=== PATIENT | female | born 1945 | race Caucasian/White ===

== ENCOUNTER 2016-05-05 18:39 | Inpatient (IN) | payer BC ==
--- NOTE | ~2016-05-05 | CN ---
Consultation Report [facility] [address] [place]. [address] NAME: ROXANNA BOUCHER : 45 STATUS : ADM IN PAT#: [id number] AGE: 70 ADM/REG DATE : 05/05/16 MR#: [id number] REPORT SERV DATE: 05/06/16 DICTATED BY: ROBE MONTEZ DATE: 05/06/16 REPORT STATUS : Draft TRANSCRIBED BY: MODL DATE: 05/06/16 CONSULTATION DATE OF CONSULTATION: 05/06/2016 CHIEF COMPLAINT: Shortness of breath in a patient with a moderate to large right-sided pleural effusion. HISTORY OF PRESENT ILLNESS: Mrs. Roxanna Boucher is a very pleasant 70-year-old white female with a past medical history significant for recent right-sided chest trauma event, breast cancer, and diabetes mellitus, who presents to [facility]'s emergency room with complaints of worsening shortness of breath. It should be noted that Mrs. Boucher did suffer a traumatic fall with resultant fractures to her right ribs and was seen at [place] as recently as mid March. The patient is not currently followed by a wardrobe technician. She does not usually require supplemental oxygen. She takes no nebulized medications. The patient states that she smoked very infrequently for less than a year when she was a teenager. She does confirm daytime somnolence and snoring consistent with obstructive sleep apnea. She describes her exercise tolerance as being quite good prior to this recent illness, being able to walk over a city block without experiencing any shortness of breath. The patient states that in early March, she took a fall off her porch striking her left shoulder and right thorax. She did have rib fractures on the right and was treated at [place] for these concerns. She eventually improved and transitioned to a rehab facility where she largely did well. She then transitioned to home. Over the last week or so, she has developed some worsening shortness of breath to such a degree that she presented to [facility]'s emergency room. Upon arrival, she was found to be normotensive and afebrile. She had good oxygenation on room air. Initial blood work revealed a white blood cell count of 8000. Hemoglobin and hematocrit were 13.4 and 42.5 respectively. Her BNP was 29.9. She did eventually undergo a CTA of the chest which revealed changes consistent with some mild pulmonary edema as well as a moderate to large right-sided pleural effusion. For the aforementioned reasons, she has been referred to the Pulmonary Service for further assessment. Currently, Mrs. oBucher' main complaint is shortness of breath. This is worse on exertion and relieved by rest. She does not have any cough today nor is producing any purulent sputum. She denies any wheezing in her chest. She denies any previous pneumonias. She denies a diagnosis of childhood asthma. She denies any chronic bronchitis or emphysema. The patient does have known hypertension. She currently denies any murmurs, angina, or palpitations. She denies any paroxysmal nocturnal dyspnea or edema. Consultation Report [place] [id number] [facility] [place]. [address] NAME: ROXANNA BOUCHER : 45 STATUS : ADM IN [facility]#: [id number] AGE: 70 ADM/REG DATE : 05/05/16 MR#: [id number] REPORT SERV DATE: 05/06/16 DICTATED BY: ROBE MONTEZ DATE: 05/06/16 REPORT STATUS : Draft TRANSCRIBED BY: NAVEEN DATE: 05/06/16 In regard to constitutional symptoms, she currently denies fever, chills, nausea, vomiting, chest pain, abdominal pain, or edema. PAST MEDICAL HISTORY: 1. Type 2 diabetes. 2. Breast cancer, status post left mastectomy. 3. Hypertension. 4. Recent rib fractures. PAST SURGICAL HISTORY: Mastectomy. FAMILY HISTORY: The patient states that her father of lung cancer. SOCIAL HISTORY: The patient has one child who is in good health. She has worked primarily in an office environment, and denies any known exposures to dust, silica, or asbestos. TOBACCO/ALCOHOL: As previously mentioned, the patient smoked infrequently for less than a year when she was a teenager. She denies any recent alcohol or illicit drug use. MEDICATIONS: 1. Aspirin 81 mg. 2. Insulin. 3. Levothyroxine 50 mcg. 4. Losartan 25 mg. 5. Pravastatin 20 mg. 6. Zoloft 100 mg. 7. Januvia 50 mg. ALLERGIES: THE PATIENT HAS AN ALLERGY TO ADHESIVE TAPE. REVIEW OF SYSTEMS: A complete review of systems was performed with pertinent positives and negatives contained within the body of the HPI. PHYSICAL EXAMINATION: VITAL SIGNS: Blood pressure is 185/77, heart rate is 73, T-max is 97.5, respiratory rate is 18, and SpO2 is 94% on room air. GENERAL: The patient is a pleasant, well-nourished/well-developed female, who is not currently exhibiting any signs of acute distress. Skin: Skin with appropriate texture and turgor. No rashes, lesions, or ulcers. Nails are clear without cyanosis or clubbing. HEENT: Head: Skull is normocephalic/atraumatic. Facies symmetric. No masses or lesions. Eyes: Sclera anicteric, conjunctiva pink without exudates. Extra ocular movements intact. Pupils are equal, round, reactive to light. Ears: Auricles and tragus without pain to palpation. Hearing is grossly intact. Consultation Report [address] [place]. [address] NAME: ROXANNA BOUCHER : 45 STATUS : ADM IN [facility]#: [id number] AGE: 70 ADM/REG DATE : 05/05/16 MR#: [id number] REPORT SERV DATE: 05/06/16 DICTATED BY: ROBE MONTEZ DATE: 05/06/16 REPORT STATUS : Draft TRANSCRIBED BY: NAVEEN DATE: 05/06/16 Nose: Bilateral nasal patency. Sinuses without tenderness upon palpation. Throat: The patient has good dentition and good repair. Lips, oral mucosa, tongue, palate, and pharynx pink and moist without lesions. Uvula rises equally on phonation. Tongue midline without deviation. NECK: Neck supple. Trachea midline. No cervical lymphadenopathy appreciated. THORAX/LUNGS: Thorax is symmetric with equal chest rise. Diminished breath sounds in the right lower lung swann. No rales, wheezes, rhonchi. CARDIOVASCULAR: Regular rate and rhythm. No murmurs, rubs, or gallops. Anterior chest without thrills, heaves, or lifts. ABDOMEN: Soft. Non-distended, non-tender. Active bowel sounds in all four quadrants. No hepatosplenomegaly noted. PERIPHERAL VASCULAR: No edema. No varicosities, stasis changes, open sores, ulcerations, or phlebitis. 2+ pulses in radial and dorsalis pedis. MUSCULOSKELETAL: Full AROM and PROM in all joints. No evidence of erythema, deformity, or crepitus. NEUROLOGIC: CN II - XII grossly intact. Good muscle bulk and tone bilaterally. Strength 5/5 throughout. PSYCHIATRIC: Patient demonstrates good judgment and insight. Pt is A and O x 3. ACCESSORY DATA: White blood cell count is 8000, hemoglobin and hematocrit 12.9 and 39.1. Potassium is 3.4. CTA of the chest reveals right-sided rib fractures as well as concomitant pleural effusion. IMPRESSION: 1. Moderate to large right-sided pleural effusion. 2. Recent trauma to the right chest with rib fracture. 3. History of breast cancer. 4. Hypertension. 5. Diabetes mellitus type 2. 6. Possible obstructive sleep apnea. PLAN: In regard to the patient's [id number] right-sided pleural effusion, this is likely secondary to her recent trauma to the right chest. We did spend some time discussing with the patient about the most appropriate way to remove this pleural fluid. We did discuss thoracentesis versus chest tube placement, and even possible video-assisted thorascopic surgery. Given the likely etiology of this pleural fluid, we will proceed with chest tube placement for hopeful complete evacuation of the pleural space. This will also allow for drainage of inflammatory fluid as well as lytic therapy if there is not complete re-expansion of the lung. The patient understands the risks, benefits, and alternatives of the three aforementioned procedures and wishes to proceed with chest tube placement. The fluid will be sent for the appropriate diagnostic studies. In regard to the patient's possible obstructive sleep apnea, she is in the process of an outpatient workup for obstructive sleep apnea. We may check an overnight pulse oximetry while she is here to surveil for possible obstructive sleep apnea. Consultation Report [address] [address] NAME: ROXANNA BOUCHER BRANNON : 45 STATUS : ADM IN PAT#: [id number] AGE: 70 ADM/REG DATE : 05/05/16 MR#: [id number] REPORT SERV DATE: 05/06/16 DICTATED BY: ROBE MONTEZ DATE: 05/06/16 REPORT STATUS : Draft TRANSCRIBED BY: MODL DATE: 05/06/16 The aforementioned impression and plan has been discussed with Dr. Cerna, who will follow further recommendations. We thank you for this consult and look forward to participating in the care of Mrs. Boucher. GBS/MODL Robe Montez PA-C / [id number] CC: Gregory Berkowitz M.D.
--- NOTE | ~2016-05-05 | OP ---
Record Of Operation [facility] [address] [place]. [address] NAME: DEZ BOUCHER : 45 STATUS : ADM IN PAT#: [id number] AGE: 70 ADM/REG DATE : 05/05/16 MR#: [id number] REPORT SERV DATE: 05/14/16 DICTATED BY: JOSE OLIVERA DATE: 05/14/16 REPORT STATUS : Draft TRANSCRIBED BY: MODL DATE: 05/14/16 DATE OF PROCEDURE: 05/14/2016 ATTENDING PHYSICIAN: Dr. Jose Olivera. BATTERY CHARGER TESTER: Patricio Barone. PREOPERATIVE DIAGNOSIS: 1. Multiple rib fractures on the right. 2. Posttraumatic loculated right pleural effusion. POSTOPERATIVE DIAGNOSIS: 1. Multiple rib fractures on the right. 2. Posttraumatic loculated right pleural effusion. OPERATION PROCEDURE PERFORMED: 1. Right VATS. 2. Right lower lobe decortication. 3. Drainage of loculated right pleural effusion. SPECIMEN REMOVED: Right pleural effusion. ESTIMATED BLOOD LOSS: Less than 10 mL. COMPLICATIONS: None. TUBES AND DRAINS: A 24-Chilean Alexandr and 28 straight chest tube. INDICATIONS FOR PROCEDURE: Ms. Boucher is a 70-year-old female, status post a traumatic fall approximately 2 months ago with a persistent shortness of breath and chest pain. She presented with shortness of breath and was found to have a loculated right pleural effusion on chest CT, underwent chest tube placement with partial drainage; however, the fluid collection was not completely drained. She was referred to Thoracic Surgery. The patient was seen and evaluated. Risks, benefits, and alternatives were discussed including but not limited to, bleeding, infection, stroke, , heart attack, need for future operations. All questions were answered. She was brought to the operating room. DETAILS OF PROCEDURE: The patient was brought to the operating room and placed supine on the operating room table. After satisfactory induction of general endotracheal anesthesia with a double-lumen ET tube, she was log rolled in the left lateral decubitus position. Arm was placed on the overhead arm sling, the external roll was placed, lower leg was bent, upper leg was straight. She was prepped and draped in the usual sterile fashion. The pre- existing chest tube had been removed. An incision was made in the 7th intercostal space in the mid axillary line. Skin and subcutaneous tissues were divided, latissimus was divided, serratus was divided, the intercostal muscles were divided. Pleura was incised and the chest was entered. Straw-colored pleural fluid was encountered. Wound protector was placed Record Of Operation [address] [address] NAME: DEZ BOUCHER : 45 STATUS : ADM IN PAT#: [id number] AGE: 70 ADM/REG DATE : 05/05/16 MR#: [id number] REPORT SERV DATE: 05/14/16 DICTATED BY: JOSE OLIVERA DATE: 05/14/16 REPORT STATUS : Draft TRANSCRIBED BY: NAVEEN DATE: 05/14/16 and the camera was then introduced. Working through the port, all the pleural adhesions from the lung were taken down and the pleural fluid was evacuated. A decortication was done of the lower lobe. There was a peel that was easily removed. Chest was irrigated and the lung was expanded, the lung filled the space. A 28-Chilean chest tube was introduced through a separate stab incision and reentered the apex. A 24 Alexandr was then placed posteriorly and then to the apex. These were anchored in position. The procedure was terminated, and the incision was closed with 0 Vicryl and 2-0 Quill. Dermabond was applied to this incision and chest tubes were dressed. Nylons were placed in the old chest tube site with iodoform packing between. The patient was transferred to the PACU in stable condition. [facility]/NAVEEN Jose Olivera MD / [id number] CC: Gregory Koenig M.D.
--- NOTE | ~2016-05-05 | IDS ---
Interim Discharge Summary [facility] [address] [place]. [address] NAME: DEZ BOUCHER : 45 STATUS : ADM IN PAT#: [id number] AGE: 70 ADM/REG DATE : 05/05/16 MR#: [id number] REPORT SERV DATE: 05/12/16 DICTATED BY: FELIPA MAHARAJ DATE: 05/12/16 REPORT STATUS : Draft TRANSCRIBED BY: MODL DATE: 05/12/16 ADMISSION DATE: 05/05/2016 DISCHARGE DATE: CURRENT HOSPITAL DIAGNOSES: 1. Pleural effusion, right side, posttraumatic, with residual loculated fluid. 2. History of breast cancer. 3. Diabetes. 4. Hypertension. CONSULTATIONS: Pulmonary. PROCEDURES: 1. Chest tube placement. 2. CTA done on 05/05/2016, showing no PE, diffuse ground-glass opacity, and coarse interstitial markings suggesting interstitial edema pattern, moderate large right pleural effusion, multiple healing right-sided rib fractures. 3. CT #2 done on 05/12/2016, followed by post chest tube showed a residual 5.8 x 3 x 7.7 cm, posterior base loculated effusion with a tiny pneumothorax. CURRENT PHYSICAL FINDINGS AND HISTORY OF PRESENT ILLNESS: Please see initial dictated H and P by Dr. Jc. In brief, the patient is a 70-year-old female, who presented with pain and shortness of breath after remote fall with subsequent rib fractures. Vitals at the time of presentation, BP was 145/74, temperature was 97.9, and she has not been febrile during her hospital stay. Pulse rates have been in the 90s on average. Lab work showed an ABG with a pH of 7.47. BMP was unremarkable. Blood sugars have been well controlled. Troponins were negative x2. A1c was 7.7. BNP was 29.9. She has had no leukocytosis or fever. H and H have been stable within the normal range. Strep urinary antigen was negative. Legionella was negative. Cytology on the aspirate of pleural fluid was negative. Fungal cultures are currently pending. Gram stain was negative and bacterial culture was negative. The patient was admitted. Reasonable pain medications were given. Home medications were reviewed and prescribed appropriately. Sliding scale was given. Supplemental O2. She was placed on electrolyte protocol. Pulmonary was consulted. Discussed thoracentesis and chest tube placement with her. She opted for chest tube placement. This was done on 05/07/2016. The patient did well for the first several days, however, did develop slight pneumothorax requiring placing the chest tube to suction. She had copious amounts of draining fluid. I took over care on 05/08/2016, and her insulin was bumped up just a bit. She was placed on ROBIN and SCDs for DVT prophylaxis. When she had a small bump in her creatinine, her Cozaar was held. On 05/10/2016, she had a complaint of chest pain that she felt was slightly different than her pain from the chest tube, but EKG and troponin were negative. She was titrated off IV fluids on 05/10/2016. On 05/11/2016, CT scan was ordered and today, she has been advised for options on further care as there was still the presence of the loculated fluid at this point. She is going to consent for VATS procedure. Cardiothoracic Surgery will be notified. DISPOSITION: The patient is currently stable. She will be consulted for possible VATS Interim Discharge Summary [address] [address] NAME: DEZ BOUCHER : 45 STATUS : ADM IN [facility]#: [id number] AGE: 70 ADM/REG DATE : 05/05/16 MR#: [id number] REPORT SERV DATE: 05/12/16 DICTATED BY: FELIPA MAHARAJ DATE: 05/12/16 REPORT STATUS : Draft TRANSCRIBED BY: MODL DATE: 05/12/16 procedure. Her diabetes was stable. No changes are planned. She can start back on her Cozaar at any point if her blood pressures are an issue. TLF/MODL Felipa Maharaj M.D. / [id number] CC: Gregory Berkowitz M.D.
--- NOTE | ~2016-05-05 | CN ---
Consultation Report [facility] [address] [place]. [address] NAME: ROXANNA BOUCHER : 45 STATUS : ADM IN PAT#: [id number] AGE: 70 ADM/REG DATE : 05/05/16 MR#: [id number] REPORT SERV DATE: 05/13/16 DICTATED BY: DEEPTHI MAX DATE: 05/12/16 REPORT STATUS : Draft TRANSCRIBED BY: MODL DATE: 05/12/16 CONSULT REPORT DATE OF CONSULTATION: 05/12/2016 [facility] REASON FOR CONSULTATION: Right loculated pleural effusion. REQUESTING PHYSICIAN: Robe Chavez PA-C HISTORY OF PRESENT ILLNESS: This is a pleasant 70-year-old female who was admitted on 05/05/2016 with shortness of breath after suffering a traumatic fall in 03/2016 with injury to her right chest wall and with fracture of several ribs. She was seen at [facility] at that time and then sent to [facility] for inpatient rehabilitation. Over the past several weeks, she has had worsening shortness of breath. In the emergency room, her white blood cell count was 8000 with other labs okay. No fevers. She had a CT angiogram of her chest which showed a large right-sided pleural effusion. Pulmonary was consulted. She had a 16-Icelandic chest tube placed on 05/07/2016 by JJ Mao, and had almost complete evacuation of right-sided pleural effusion. Serial chest x-rays over the weekend showed slow increase in consolidation of her right lung. She had a repeat CT scan of her chest today which showed a 5.8 x 3 x 7.7 cm sized loculated pleural effusion at the posterior base just medial to where her chest tube was. CT Surgery was consulted for evaluation of possible VATS versus lytic therapy. Currently, the patient has no complaints of shortness of breath. She does admit to having some right-sided flank pain at the area of her chest tube, but otherwise feels well. PAST MEDICAL HISTORY: Significant for type 2 diabetes mellitus, breast cancer status post bilateral mastectomies, hypertension, and recent rib fractures on the right. PAST SURGICAL HISTORY: Bilateral mastectomies for left-sided breast cancer. FAMILY HISTORY: She had a father who from lung cancer. SOCIAL HISTORY: She smoked occasionally as a teenager, but has not had any significant tobacco abuse since that time. Denies any history of alcohol abuse or use of illicit drugs. She is with children. She is retired. ALLERGIES: SHE IS ALLERGIC TO ADHESIVE TAPE. HOME MEDICATIONS: 1. Vitamin C 500 mg p.o. every morning. 2. Aspirin 81 mg per day. 3. Calcium with vitamin D 1000 mg p.o. every morning. Consultation Report [address] [place]. [address] NAME: ROXANNA BOUCHER : 45 STATUS : ADM IN PAT#: [id number] AGE: 70 ADM/REG DATE : 05/05/16 MR#: [id number] REPORT SERV DATE: 05/13/16 DICTATED BY: DEEPTHI MAX DATE: 05/12/16 REPORT STATUS : Draft TRANSCRIBED BY: NAVEEN DATE: 05/12/16 4. Lantus 20 units subcutaneous twice a day. 5. Levothyroxine 50 mcg p.o. daily. 6. Losartan 25 mg p.o. daily. 7. Melatonin 10 mg p.o. at bedtime as needed. 8. Fish oil 1000 mg p.o. daily. 9. Januvia 50 mg p.o. daily. 10.Zoloft 100 mg p.o. daily. 11.Pravachol 20 mg p.o. at bedtime. REVIEW OF SYSTEMS: A 12-point review of systems was obtained and is negative other than HPI. PHYSICAL EXAMINATION: VITAL SIGNS: Today, temperature 97.8, heart rate 93, blood pressure 145/65, respiratory rate 16, and O2 saturation 96% on room air. GENERAL: Pleasant, obese female, in no acute distress. NEUROLOGIC: Alert and oriented x3. Pupils exhibit PERRLA. HEENT: Head normocephalic and atraumatic. NECK: Supple. Sclerae clear. LUNGS: Clear bilaterally with diminished bases, more diminished on the right. CARDIAC: S1 and S2 with no murmurs, rubs, or gallops. Sinus rhythm. ABDOMEN: Soft, obese, and nontender with active bowel sounds. EXTREMITIES: Free of cyanosis, clubbing, or edema. LABORATORY DATA: Labs from 05/08/2016: White blood cell count 10.5, hemoglobin 12.9, hematocrit 40.2, platelets 311. Sodium 138, potassium 4.9, chloride 103, bicarbonate 27, BUN 22, creatinine 0.9, glucose 171. CT of chest without contrast on 05/12/2016 showed interval placement of right-sided chest tube with decrease in size of previous free flowing appearing right pleural effusion. There remains a suspected loculated component of the posterior base measuring 5.8 x 3 x 7.7 cm in size. There is worsening bibasilar subsegmental atelectasis and a tiny anterior right-sided pneumothorax. Volume estimated less than 2% with multivessel coronary artery atherosclerosis and/or stenting. ASSESSMENT AND PLAN: This is a pleasant 70-year-old female who was admitted 7 days ago with shortness of breath after suffering a traumatic fall back in 03/2016 and suffered several fractures of her right rib. In the emergency room, she had a CT angiogram of her chest which showed a large right-sided pleural effusion which is not completely resolved after chest tube placement five days ago. Repeat CT scan today showed a 5.8 x 3 x 7.7 cm loculated pleural effusion. Considering that her injury was almost 2 months ago, I do not think this will significantly improve with lytic therapy. Based upon CT imaging today and what has transpired over the last 7 days, we would recommend proceeding with VATS with decortication, possible thoracotomy. I discussed the risks and benefits of surgery with the patient and she is willing to proceed. We will plan the right VATS for Thursday afternoon Consultation Report [address] [place]. [address] NAME: ROXANNA BOUCHER : 45 STATUS : ADM IN [facility]#: [id number] AGE: 70 ADM/REG DATE : 05/05/16 MR#: [id number] REPORT SERV DATE: 05/13/16 DICTATED BY: DEEPTHI MAX DATE: 05/12/16 REPORT STATUS : Draft TRANSCRIBED BY: MODL DATE: 05/12/16 and the patient is agreeable to this. We appreciate the consultation and look forward to helping you care for Ms. Roxanna Boucher. SABINE/NAVEEN Deepthi Max NP / [id number] CC: Gregory Berkowitz M.D.
--- NOTE | ~2016-05-05 | DS ---
Discharge Summary [address] [place]. [address] NAME: DEZ BOUCHER : 45 STATUS : DIS IN PAT#: [id number] AGE: 70 ADM/REG DATE : 05/05/16 MR#: [id number] REPORT SERV DATE: 05/19/16 DICTATED BY: NATANAEL COBURN DATE: 05/18/16 REPORT STATUS : Draft TRANSCRIBED BY: MODL DATE: 05/18/16 ADMISSION DATE: 05/05/2016 DISCHARGE DATE: 05/18/2016 DISCHARGE DIAGNOSES: Include: 1. Right pleural effusion with loculated fluid, post-traumatic, status post a fall at home with rib fractures. The patient underwent a video-assisted thoracoscopic surgery procedure and right lower lobe decortication on 05/14/2016. 2. Diabetes type 2 with hemoglobin A1c of 8.0, some mild hypoglycemic events. 3. Lower extremity edema, improved. 4. Hypothyroidism. Most recent TSH 1.930. 5. Acute kidney injury, resolved. 6. History of breast cancer. 7. Hypertension. DISCHARGE MEDICINES: Are as follows: Vitamin C 500 mg daily, calcium/vitamin D tab 1000 mg daily, Lantus insulin 24 units subcutaneously twice a day until followup with her primary care, Synthroid 50 mcg daily, Pravachol 20 mg at bedtime, Zoloft 100 mg daily, Januvia 50 mg daily, aspirin 81 mg daily, omega-3 fatty acid 1000 mg daily, Cozaar 25 mg daily, melatonin 10 mg at bedtime p.r.n. for sleeplessness, Roxicodone 5 mg one to two p.o. every six hours p.r.n. for pain, prescriptions have been written for that. HISTORY OF PRESENT ILLNESS: A pleasant 70-year-old female, who originally presented with complaint of shortness of breath after having recently been an inpatient at [facility]. Please see initial H and P of Dr. Wicho Jc as the patient was admitted to the hospitalist service for further evaluation and treatment. Please also see the interim discharge summary of Dr. Pako Mccray as this discharge summary will cover the dates of 05/13/2016 until 05/18/2016. CONSULTANTS DURING THIS ADMISSION: Include Pulmonology, Robe Chavez PJarod.; Thoracic Surgery, Pietro Crowe, nurse practitioner, and Dr. Whitman. CONTINUATION IN HER HOSPITAL COURSE: I began seeing the patient on 05/13/2016. She was feeling some better with her current chest tube draining and no air leak. She had been seen and evaluated by Thoracic Surgery, Dr. Whitman, and a VATS procedure and decortication was scheduled for Thursday, 05/14. She did undergo this procedure and tolerated well. She recovered, and two chest tubes were placed operatively. She continued to do well postoperatively. Her oxygen was able to be weaned, and pulmonary toilet was continued. She was able to be weaned off her [employer] mobilization out of bed to ambulation was achieved. She did have some adjustments on her insulin during this admission as she had a few episodes of hypoglycemia, and I have decreased her overall insulin at discharge and instructed her to follow up with her primary care within three to four weeks. Chest tubes were able be discontinued completely on 05/17/2016, and she has done well. She was felt safe for discharge home on 05/18/2016. She will have home health physical therapy. She will follow up with Dr. Whitman, Thoracic Surgery, in three weeks, follow up with her primary care in three to four weeks the above described medicines. The patient was in agreement with this Discharge Summary [address] [address] NAME: DEZ BOUCHER : 45 STATUS : DIS IN [facility]#: [id number] AGE: 70 ADM/REG DATE : 05/05/16 MR#: [id number] REPORT SERV DATE: 05/19/16 DICTATED BY: NATANAEL COBURN DATE: 05/18/16 REPORT STATUS : Draft TRANSCRIBED BY: NAVEEN DATE: 05/18/16 plan going forward. Questions were answered at bedside. Please note, greater than 30 minutes was spent on this discharge for medication teaching, followup planning, and further disposition. DOM/NAVEEN Natanael Coburn NP / [id number]
--- NOTE | ~2016-05-05 | HP ---
History And Physical [address] [place]. [address] NAME: DEZ BOUCHER : 45 STATUS : ADM IN PAT#: [id number] AGE: 70 ADM/REG DATE : 05/05/16 MR#: [id number] REPORT SERV DATE: 05/06/16 DICTATED BY: JATINDER JC DATE: 05/05/16 REPORT STATUS : Draft TRANSCRIBED BY: MODL DATE: 05/05/16 DATE OF ADMISSION: 05/05/2016 CHIEF COMPLAINT: Shortness of breath. HISTORY OF PRESENT ILLNESS: The patient is a 70-year-old female with past medical history of diabetes type 2, breast cancer on the left side x2, hypertension who had recent fall and subsequent multiple rib fractures and elbow fracture on the right side seen at [place]. The patient reports that for the last two days, she has been having worsening shortness of breath and decreased exercise tolerance. Symptoms have become constant to moderate. The patient was discharged from [facility] to [facility] and had good progress since then and was discharged home. The patient self-titrated herself off pain medications and anxiety medications that were started at [facility] because she thought these were making her shortness of breath worse. The patient does have occasional pain at the shoulder but not with breathing cycle or pleurisy type pain. Symptoms do not radiate but there is shortness of breath. The patient was concerned that she was getting hypoxic. She does have no cough, nausea, vomiting, fever, chills, or diarrhea. Symptoms are worsened by rotation and movement but no relieving symptoms. Symptoms are present but improved. REVIEW OF SYSTEMS: A 10-point review of systems negative except for that noted in the HPI. PAST MEDICAL HISTORY: Diabetes type 2, breast cancer left side x2, and prophylactic right breast mastectomy, and hypertension. SOCIAL HISTORY: No smoking. Rare wine. No alcohol, used to be a psychologist. SURGICAL HISTORY: Left knee, bilateral breasts with left-sided lumpectomy then resultant bilateral mastectomy, and tonsils. FAMILY HISTORY: Sister, cousin, aunt, and mother all have breast cancer but no genetic component has been identified. ALLERGIES: PERCOCET AND ADHESIVE TAPE. MEDICATIONS: Reviewed on chart. PHYSICAL EXAMINATION: VITAL SIGNS: Blood pressure 145/74, temperature 79.9, pulse 78, respirations 16, O2 saturations 98% on room air. GENERAL: No acute distress. Well developed, well nourished. HEAD: Normocephalic, atraumatic. EYES: No scleral icterus. EOMI. ENT: Nares patent. Tongue midline. No JVD. RESPIRATORY: Decreased breath sounds on right lower lung but otherwise clear breath sounds upper bilaterally and no stridor. History And Physical [address] [address] NAME: DEZ BOUCHER : 45 STATUS : ADM IN [facility]#: [id number] AGE: 70 ADM/REG DATE : 05/05/16 MR#: [id number] REPORT SERV DATE: 05/06/16 DICTATED BY: JATINDER JC DATE: 05/05/16 REPORT STATUS : Draft TRANSCRIBED BY: NAVEEN DATE: 05/05/16 CHEST: Equal expansion with pain on right side with deep palpation. CV: Regular rate. No rubs. Hypertensive at times but blood pressure is being measured on leg due to mastectomy history. GI: Soft, nontender, nondistended. Bowel sounds positive. : Deferred. MUSCULOSKELETAL: Moves all extremities. Does have mild range of motion. Difficulty with pain secondary to right elbow fracture. SKIN: Warm and dry. HEME: No bleeding or bruising. NEURO: Alert and oriented. Moves all extremities x4. Symmetrical strength in hands. PSYCH: Appropriate mood and affect, pleasant. PERTINENT LABS: CBC grossly within normal limits with INR 1.1. BMP grossly within normal limits with exception of glucose of 172, BUN creatinine 15 and 0.81, troponin negative, BNP 29.9. Chest PA lateral; degeneration of nonspecific right pleural effusion. Prior left mastectomy, question possibly a small nodule in the right upper lung not mentioned above suggestive measuring about 1.1 x 1.1 cm, may wish to consider CT scan for further followup. CTA chest that was performed; no CTA evidence of PE, diffuse ground-glass opacity and coarse interstitial lung markings suggestive of pulmonary interstitial edema pattern, possible cardiogenic in the appropriate setting with heart size enlargement, and moderate dense coronary calcifications moderate large right pleural effusion, multiple healing right-sided rib fractures. EKG; normal sinus rhythm with a rate of 78, QTc 446. ASSESSMENT AND PLAN: 1. Pleural effusion. 2. Hypertension. 3. Rib fractures. 4. Diabetes type 2. 5. Breast cancer history. 6. Likely sleep apnea. PLAN: 1. For pleural effusions, Pulmonary evaluation, likely thoracentesis. No signs of acute decompensation. Blood pressure hypertensive, oxygenation maintaining greater than 95% even after ambulation and during talking episodes without oxygen but the patient will have supplemental oxygen and continuous O2 monitoring throughout night and possible drainage. The patient does have history of breast cancer, will likely need cytology and evaluation although likely suspicion for trauma-induced effusion. We will defer to Pulmonary guidance as the patient does have questionable pulmonary nodule noted on chest x-ray but not well defined on chest CT. 2. Hypertension p.r.n.s, BP testing in the legs typically stable per patient. 3. Rib fracture, treated supportively at [facility] and healing on imaging. 4. Diabetes type 2. Sliding scale insulin. History And Physical [address] [address] NAME: DEZ BOUCHER : 45 STATUS : ADM IN [facility]#: [id number] AGE: 70 ADM/REG DATE : 05/05/16 MR#: [id number] REPORT SERV DATE: 05/06/16 DICTATED BY: JATINDER JC DATE: 05/05/16 REPORT STATUS : Draft TRANSCRIBED BY: MODL DATE: 05/05/16 5. Breast cancer history, status post mastectomy. 6. Likely sleep apnea. Outpatient sleep study ordered. DDN/MODL Jatinder Jc MD / [id number] CC: Gregory Floyd M.D.
[2016-05-05 15:37] LABS: BASOPHILS 0.6 %; BASOPHILS ABSOLUTE 0.05 10/3/uL (0.0-0.16); EOSINOPHILS 2.4 %; EOSINOPHILS ABSOLUTE 0.19 10/3/uL (0.0-0.53); ER CBC TAT 0 Hrs 15 Mins; HEMOGLOBIN 13.4 g/dL (12.0-16.0); IMMATURE GRANULOCYTES 0.1 %; IMMATURE GRANULOCYTES ABSOLUTE 0.01 10/3/uL (0.0-0.11); LYMPHOCYTES 21.9 %; LYMPHOCYTES ABSOLUTE 1.75 10/3/uL (0.67-4.30); MEAN CORPUS HGB CONC 31.5 g/dL (32.0-36.0); MEAN CORPUSCULAR HEMOGLOB 27.1 pg (26.0-34.0); MEAN CORPUSCULAR VOLUME 85.9 fL (80-100); MEAN PLATELET VOLUME 11.5 fL (9.2-13.0); MONOCYTES ABSOLUTE 0.56 10/3/uL (0.21-1.20); NEUTROPHILS ABSOLUTE 5.44 10/3/uL (2.02-8.40); PLATELET COUNT 338 10/3/uL (150-400); RBC DISTRIBUTION WIDTH 14.1 % (12.0-16.0); RED CELL COUNT 4.95 10/6/uL (4.0-5.6)
[2016-05-05 15:39] LABS: HEMATOCRIT 42.5 % (36.0-48.0); INTERNATIONAL NORMAL RATI 1.1 UNITS (-); MANUAL DIFF NO %; PARTIAL THROMBO TIME 28.2 SEC (22.5-37.2); PROTIME (NOT ORD) 14.1 SEC (12.0-14.5)
[2016-05-05 15:47] LABS: BUN (BLOOD UREA NITROGEN) 15 MG/DL (6-23); CHEST PAIN PROFILE TAT 0 Hrs 25 Mins; CHLORIDE, SERUM 103 MMOL/L (96-112); CO2 (CARBON DIOXIDE) 27 MMOL/L (24-34); CREATININE 0.81 MG/DL (0.55-1.02); GFR AFRICAN AMERICAN 85 ML/MIN (>=60); GFR NON AFRICAN AMERICAN 74 ML/MIN (>=60); GLUCOSE, SERUM 172 MG/DL (60-99); POTASSIUM, SERUM 3.6 MMOL/L (3.5-5.3); SODIUM, SERUM 140 MMOL/L (135-148); TROPONIN I <0.02 NG/ML (<0.05)
[~2016-05-05 18:39] MED LIST: ASAB PO; BYETTA SC; CALTRA600D PO; CLARIT10 PO; COSAMIN DS1 TAB PO; COZ25 PO; ESTER-C500 MG PO; FLONASE NAS; GLUCOTROL5 PO; JANUVIA50 PO; LANTUS SC; LANTUSCART SC; OS500+D PO; PRAVAC PO; PRIN5 PO; PROMEGA PO; VITAMIN D1000 UNI1 PO; VITC500 PO; ZOL100 PO; ZOL50 PO
[2016-05-05] MEDS ORDERED: VITC500 PO (21:10)
[2016-05-05] MEDS ORDERED: ASAB PO (21:11)
[2016-05-05] MEDS ORDERED: OS500+D PO (21:11)
[2016-05-05] MEDS ORDERED: FISH-EPA1000 MG PO (21:12)
[2016-05-05] MEDS ORDERED: LANTUSCART SC (21:28)
[2016-05-05] MEDS ORDERED: SYN.05 PO (21:29)
[2016-05-05] MEDS ORDERED: PRAVAC PO (21:29)
[2016-05-05] MEDS ORDERED: COZ25 PO (21:29)
[2016-05-05] MEDS ORDERED: ZOL100 PO (21:29)
[2016-05-05] MEDS ORDERED: MELATONIN10 M2 PO (22:19)
[2016-05-05] MEDS ORDERED: JANUVIA50 PO (22:19)
[2016-05-05 22:56] LABS: PROCALCITONIN <0.05 ng/mL (<0.5)
[2016-05-06 06:10] LABS: BASOPHILS 0.4 %; BASOPHILS ABSOLUTE 0.03 10/3/uL (0.0-0.16); EOSINOPHILS 3.4 %; EOSINOPHILS ABSOLUTE 0.27 10/3/uL (0.0-0.53); HEMATOCRIT 39.1 % (36.0-48.0); HEMOGLOBIN 12.9 g/dL (12.0-16.0); IMMATURE GRANULOCYTES 0.1 %; IMMATURE GRANULOCYTES ABSOLUTE 0.01 10/3/uL (0.0-0.11); LYMPHOCYTES 24.5 %; LYMPHOCYTES ABSOLUTE 1.95 10/3/uL (0.67-4.30); MEAN PLATELET VOLUME 11.3 fL (9.2-13.0); MONOCYTES ABSOLUTE 0.64 10/3/uL (0.21-1.20); NEUTROPHILS 63.6 %; NEUTROPHILS ABSOLUTE 5.06 10/3/uL (2.02-8.40); PLATELET COUNT 294 10/3/uL (150-400); RBC DISTRIBUTION WIDTH 13.9 % (12.0-16.0)
[2016-05-06 06:11] LABS: MANUAL DIFF NO %
[2016-05-06 06:28] LABS: CALCIUM, SERUM 8.7 MG/DL (8.5-10.4); CHLORIDE, SERUM 104 MMOL/L (96-112); CO2 (CARBON DIOXIDE) 25 MMOL/L (24-34); GFR AFRICAN AMERICAN 102 ML/MIN (>=60); GFR NON AFRICAN AMERICAN 88 ML/MIN (>=60); PHOSPHORUS, SERUM 2.9 MG/DL (2.5-4.5); POTASSIUM, SERUM 3.4 MMOL/L (3.5-5.3); SODIUM, SERUM 141 MMOL/L (135-148)
[2016-05-06 06:32] LABS: BUN (BLOOD UREA NITROGEN) 11 MG/DL (6-23); GLUCOSE, SERUM 215 MG/DL (60-99)
[2016-05-07 06:10] LABS: BASOPHILS 0.4 %; BASOPHILS ABSOLUTE 0.03 10/3/uL (0.0-0.16); EOSINOPHILS 3.3 %; EOSINOPHILS ABSOLUTE 0.24 10/3/uL (0.0-0.53); HEMATOCRIT 38.6 % (36.0-48.0); HEMOGLOBIN 12.7 g/dL (12.0-16.0); IMMATURE GRANULOCYTES 0.3 %; IMMATURE GRANULOCYTES ABSOLUTE 0.02 10/3/uL (0.0-0.11); LYMPHOCYTES 25.2 %; LYMPHOCYTES ABSOLUTE 1.86 10/3/uL (0.67-4.30); MEAN CORPUS HGB CONC 32.9 g/dL (32.0-36.0); MEAN PLATELET VOLUME 11.3 fL (9.2-13.0); MONOCYTES 10.3 %; MONOCYTES ABSOLUTE 0.76 10/3/uL (0.21-1.20); NEUTROPHILS 60.5 %; NEUTROPHILS ABSOLUTE 4.47 10/3/uL (2.02-8.40); PLATELET COUNT 305 10/3/uL (150-400); RED CELL COUNT 4.54 10/6/uL (4.0-5.6); WHITE BLOOD CELLS 7.4 10/3/uL (4.5-10.5)
[2016-05-07 06:13] LABS: MANUAL DIFF NO %
[2016-05-07 06:26] LABS: CALCIUM, SERUM 8.9 MG/DL (8.5-10.4); CHLORIDE, SERUM 102 MMOL/L (96-112); CO2 (CARBON DIOXIDE) 26 MMOL/L (24-34); CREATININE 0.81 MG/DL (0.55-1.02); GFR AFRICAN AMERICAN 85 ML/MIN (>=60); GFR NON AFRICAN AMERICAN 74 ML/MIN (>=60); GLUCOSE, SERUM 202 MG/DL (60-99); POTASSIUM, SERUM 3.9 MMOL/L (3.5-5.3); SODIUM, SERUM 139 MMOL/L (135-148)
[2016-05-07 06:31] LABS: BUN (BLOOD UREA NITROGEN) 15 MG/DL (6-23); PHOSPHORUS, SERUM 3.8 MG/DL (2.5-4.5)
[2016-05-07 12:28] LABS: INSTRUMENT SERIAL # 35151; SAMPLE PLR; pH 7.47 (7.37-7.43)
[2016-05-07 15:40] LABS: BODY FLUID TRIGLYCERIDE 56 MG/DL; GLUCOSE BODY FL (NOT ORD) 203 MG/DL; LDH BODY FLUID (NOT ORD) 242 U/L; PROTEIN BODY FLUID 4.8 G/DL
[2016-05-07 16:05] LABS: BD FL LYMPH (NOT ORD) 28 %; BF BASO (NOT OF) 0 %; BF LARGE MONONUCLEAR 71 %; BODY FLUID EOS (NOT ORD) 0 %; BODY FLUID SEG (NOT ORD) 1 %
[2016-05-07 16:06] LABS: BD FL SOURCE (NOT ORD) RT PLEURAL
[2016-05-07 20:46] LABS: BF TOTAL CELL CT (NOT ORD 13353 /MM3; BODY FLUID RBC (NOT ORD) < 10 /MM3
[2016-05-08 05:48] LABS: CALCIUM, SERUM 8.5 MG/DL (8.5-10.4); CHLORIDE, SERUM 100 MMOL/L (96-112); CO2 (CARBON DIOXIDE) 23 MMOL/L (24-34); GFR AFRICAN AMERICAN 27 ML/MIN (>=60); GFR NON AFRICAN AMERICAN 24 ML/MIN (>=60); GLUCOSE, SERUM 205 MG/DL (60-99); POTASSIUM, SERUM 4.6 MMOL/L (3.5-5.3); SODIUM, SERUM 140 MMOL/L (135-148)
[2016-05-08 05:51] LABS: BUN (BLOOD UREA NITROGEN) 24 MG/DL (6-23); CREATININE 2.08 MG/DL (0.55-1.02)
[2016-05-08 08:55] LABS: BASOPHILS 0.3 %; BASOPHILS ABSOLUTE 0.03 10/3/uL (0.0-0.16); EOSINOPHILS 0.7 %; EOSINOPHILS ABSOLUTE 0.07 10/3/uL (0.0-0.53); HEMATOCRIT 40.2 % (36.0-48.0); HEMOGLOBIN 12.9 g/dL (12.0-16.0); IMMATURE GRANULOCYTES 0.2 %; IMMATURE GRANULOCYTES ABSOLUTE 0.02 10/3/uL (0.0-0.11); LYMPHOCYTES 17.6 %; LYMPHOCYTES ABSOLUTE 1.84 10/3/uL (0.67-4.30); MANUAL DIFF NO %; MEAN CORPUS HGB CONC 32.1 g/dL (32.0-36.0); MEAN CORPUSCULAR VOLUME 87.2 fL (80-100); MEAN PLATELET VOLUME 11.8 fL (9.2-13.0); MONOCYTES ABSOLUTE 0.84 10/3/uL (0.21-1.20); NEUTROPHILS 73.2 %; NEUTROPHILS ABSOLUTE 7.65 10/3/uL (2.02-8.40); PLATELET COUNT 311 10/3/uL (150-400); RBC DISTRIBUTION WIDTH 14.4 % (12.0-16.0); RED CELL COUNT 4.61 10/6/uL (4.0-5.6); WHITE BLOOD CELLS 10.5 10/3/uL (4.5-10.5)
[2016-05-09 05:31] LABS: CALCIUM, SERUM 8.3 MG/DL (8.5-10.4); CHLORIDE, SERUM 101 MMOL/L (96-112); CO2 (CARBON DIOXIDE) 26 MMOL/L (24-34); GFR AFRICAN AMERICAN 42 ML/MIN (>=60); GFR NON AFRICAN AMERICAN 36 ML/MIN (>=60); GLUCOSE, SERUM 206 MG/DL (60-99); POTASSIUM, SERUM 5.3 MMOL/L (3.5-5.3); SODIUM, SERUM 137 MMOL/L (135-148)
[2016-05-09 05:32] LABS: BUN (BLOOD UREA NITROGEN) 29 MG/DL (6-23); CREATININE 1.46 MG/DL (0.55-1.02)
[2016-05-10 09:14] LABS: BUN (BLOOD UREA NITROGEN) 22 MG/DL (6-23); CALCIUM, SERUM 8.7 MG/DL (8.5-10.4); CHLORIDE, SERUM 103 MMOL/L (96-112); CO2 (CARBON DIOXIDE) 27 MMOL/L (24-34); CREATININE 0.92 MG/DL (0.55-1.02); GFR AFRICAN AMERICAN 73 ML/MIN (>=60); GFR NON AFRICAN AMERICAN 63 ML/MIN (>=60); GLUCOSE, SERUM 171 MG/DL (60-99); POTASSIUM, SERUM 4.9 MMOL/L (3.5-5.3); SODIUM, SERUM 138 MMOL/L (135-148)
[2016-05-14 05:29] LABS: BASOPHILS 0.2 %; BASOPHILS ABSOLUTE 0.03 10/3/uL (0.0-0.16); EOSINOPHILS 1.2 %; EOSINOPHILS ABSOLUTE 0.16 10/3/uL (0.0-0.53); HEMATOCRIT 36.7 % (36.0-48.0); IMMATURE GRANULOCYTES 0.3 %; IMMATURE GRANULOCYTES ABSOLUTE 0.04 10/3/uL (0.0-0.11); LYMPHOCYTES 18.8 %; LYMPHOCYTES ABSOLUTE 2.47 10/3/uL (0.67-4.30); MANUAL DIFF NO %; MEAN CORPUS HGB CONC 32.7 g/dL (32.0-36.0); MEAN CORPUSCULAR VOLUME 85.7 fL (80-100); MEAN PLATELET VOLUME 11.8 fL (9.2-13.0); MONOCYTES 10.9 %; MONOCYTES ABSOLUTE 1.43 10/3/uL (0.21-1.20); NEUTROPHILS 68.6 %; NEUTROPHILS ABSOLUTE 9.04 10/3/uL (2.02-8.40); PLATELET COUNT 330 10/3/uL (150-400); RBC DISTRIBUTION WIDTH 14.4 % (12.0-16.0); RED CELL COUNT 4.28 10/6/uL (4.0-5.6); WHITE BLOOD CELLS 13.2 10/3/uL (4.5-10.5)
[2016-05-14 06:05] LABS: BUN (BLOOD UREA NITROGEN) 13 MG/DL (6-23); CALCIUM, SERUM 8.8 MG/DL (8.5-10.4); CHLORIDE, SERUM 100 MMOL/L (96-112); CO2 (CARBON DIOXIDE) 32 MMOL/L (24-34); GFR AFRICAN AMERICAN 87 ML/MIN (>=60); GFR NON AFRICAN AMERICAN 75 ML/MIN (>=60); GLUCOSE, SERUM 59 MG/DL (60-99); POTASSIUM, SERUM 4.5 MMOL/L (3.5-5.3); SODIUM, SERUM 140 MMOL/L (135-148)
[2016-05-14 12:04] LABS: BASOPHILS 0.2 %; BASOPHILS ABSOLUTE 0.03 10/3/uL (0.0-0.16); EOSINOPHILS 1.4 %; EOSINOPHILS ABSOLUTE 0.17 10/3/uL (0.0-0.53); HEMATOCRIT 34.6 % (36.0-48.0); HEMOGLOBIN 11.5 g/dL (12.0-16.0); IMMATURE GRANULOCYTES 0.4 %; IMMATURE GRANULOCYTES ABSOLUTE 0.05 10/3/uL (0.0-0.11); LYMPHOCYTES 12.9 %; MEAN CORPUS HGB CONC 33.2 g/dL (32.0-36.0); MEAN CORPUSCULAR HEMOGLOB 28.3 pg (26.0-34.0); MEAN CORPUSCULAR VOLUME 85.2 fL (80-100); MEAN PLATELET VOLUME 11.1 fL (9.2-13.0); MONOCYTES 8.2 %; MONOCYTES ABSOLUTE 1.02 10/3/uL (0.21-1.20); NEUTROPHILS 76.9 %; NEUTROPHILS ABSOLUTE 9.51 10/3/uL (2.02-8.40); PLATELET COUNT 348 10/3/uL (150-400); RBC DISTRIBUTION WIDTH 14.2 % (12.0-16.0); RED CELL COUNT 4.06 10/6/uL (4.0-5.6); WHITE BLOOD CELLS 12.4 10/3/uL (4.5-10.5)
[2016-05-14 12:08] LABS: MANUAL DIFF NO %
[2016-05-14 12:14] LABS: BUN (BLOOD UREA NITROGEN) 12 MG/DL (6-23); CHLORIDE, SERUM 101 MMOL/L (96-112); CO2 (CARBON DIOXIDE) 32 MMOL/L (24-34); CREATININE 0.75 MG/DL (0.55-1.02); GFR AFRICAN AMERICAN 94 ML/MIN (>=60); GFR NON AFRICAN AMERICAN 81 ML/MIN (>=60); POTASSIUM, SERUM 4.5 MMOL/L (3.5-5.3); SODIUM, SERUM 137 MMOL/L (135-148)
[2016-05-14 12:17] LABS: GLUCOSE, SERUM 88 MG/DL (60-99)
[2016-05-15 05:00] LABS: BASOPHILS 0.1 %; BASOPHILS ABSOLUTE 0.01 10/3/uL (0.0-0.16); EOSINOPHILS 0 %; HEMATOCRIT 35.3 % (36.0-48.0); HEMOGLOBIN 11.5 g/dL (12.0-16.0); IMMATURE GRANULOCYTES 0.3 %; IMMATURE GRANULOCYTES ABSOLUTE 0.04 10/3/uL (0.0-0.11); LYMPHOCYTES 7.6 %; LYMPHOCYTES ABSOLUTE 1.09 10/3/uL (0.67-4.30); MEAN CORPUS HGB CONC 32.6 g/dL (32.0-36.0); MEAN CORPUSCULAR HEMOGLOB 27.4 pg (26.0-34.0); MEAN PLATELET VOLUME 11.4 fL (9.2-13.0); MONOCYTES 8.1 %; MONOCYTES ABSOLUTE 1.16 10/3/uL (0.21-1.20); NEUTROPHILS 83.9 %; NEUTROPHILS ABSOLUTE 12.02 10/3/uL (2.02-8.40); PLATELET COUNT 377 10/3/uL (150-400); RBC DISTRIBUTION WIDTH 14.1 % (12.0-16.0); WHITE BLOOD CELLS 14.3 10/3/uL (4.5-10.5)
[2016-05-15 05:08] LABS: MANUAL DIFF NO %
[2016-05-15 05:30] LABS: CALCIUM, SERUM 8.3 MG/DL (8.5-10.4); CHLORIDE, SERUM 99 MMOL/L (96-112); CREATININE 0.96 MG/DL (0.55-1.02); GFR AFRICAN AMERICAN 69 ML/MIN (>=60); GFR NON AFRICAN AMERICAN 60 ML/MIN (>=60); POTASSIUM, SERUM 4.7 MMOL/L (3.5-5.3); SODIUM, SERUM 135 MMOL/L (135-148)
[2016-05-15 05:34] LABS: BUN (BLOOD UREA NITROGEN) 19 MG/DL (6-23); CO2 (CARBON DIOXIDE) 27 MMOL/L (24-34); GLUCOSE, SERUM 296 MG/DL (60-99)
[2016-05-18 05:54] LABS: BUN (BLOOD UREA NITROGEN) 15 MG/DL (6-23); CALCIUM, SERUM 8.3 MG/DL (8.5-10.4); CHLORIDE, SERUM 98 MMOL/L (96-112); CO2 (CARBON DIOXIDE) 31 MMOL/L (24-34); CREATININE 0.83 MG/DL (0.55-1.02); GFR AFRICAN AMERICAN 83 ML/MIN (>=60); GFR NON AFRICAN AMERICAN 71 ML/MIN (>=60); GLUCOSE, SERUM 130 MG/DL (60-99); POTASSIUM, SERUM 3.9 MMOL/L (3.5-5.3); SODIUM, SERUM 138 MMOL/L (135-148)
[2016-05-18] MEDS ORDERED: OXYCOD PO (12:50)
== END 2016-05-18 13:32 | disposition home or self-care (01) | DRG 164 ==
LOC: ER 18:39 → 6NO 22:24 → SDC/OF 05-14 10:49 → PACU 05-14 11:42 → 5NO 05-14 17:03
PROVIDERS: Anesthesiology; Emergency Medicine; Internal Medicine; Nurse Practitioner Family; Physician Assistant Medical; Student in an Organized Health Care Education/Training Program; Thoracic Surgery (Cardiothoracic Vascular Surgery)
PROC: 0W9930Z Drainage of Right Pleural Cavity with Drainage Device, Percutaneous Approach (ICD-10-PCS; 2016-05-07)
PROC: 0B9 Respiratory System, Drainage (ICD-10-PCS; 2016-05-14)
PROC: 0BDN4ZZ Extraction of Right Pleura, Percutaneous Endoscopic Approach (ICD-10-PCS; principal; 2016-05-14 10:45)
DX: J90 Pleural effusion, not elsewhere classified (principal); N17.9 Acute kidney failure, unspecified; J98.11 Atelectasis; J93.9 Pneumothorax, unspecified; E11.9 Type 2 diabetes mellitus without complications; I10 Essential (primary) hypertension; Z85.3 Personal history of malignant neoplasm of breast; S22.41XD Multiple fractures of ribs, right side, subsequent encounter for fracture with routine healing; E03.9 Hypothyroidism, unspecified; Z79.4 Long term (current) use of insulin; W19.XXXD Unspecified fall, subsequent encounter
CPT/HCPCS: 71010; 71020; 71250; 71275; 80048; 82330; 82803; 82805; 82945; 82947; 82962; 83036; 83615; 83735; 83880; 83986; 84100; 84132; 84145; 84155; 84157; 84295; 84443; 84478; 84484; 85014; 85025; 85610; 85730; 87015; 87070; 87102; 87116; 87205; 87449; 88112; 88305; 89051; 93005; 94640; 96374; 99285; A9270-GY; J0360; J0690; J1170; J1940; J2250; J2405; J2550; J2710; J2795; J3010; Q9967

== ENCOUNTER 2016-05-23 11:55 | Emergency (ER) | payer BC ==
[2016-05-23 11:17] LABS: BASOPHILS 0.2 %; BASOPHILS ABSOLUTE 0.02 10/3/uL (0.0-0.16); EOSINOPHILS 0.8 %; EOSINOPHILS ABSOLUTE 0.08 10/3/uL (0.0-0.53); ER CBC TAT 0 Hrs 09 Mins; HEMATOCRIT 40.7 % (36.0-48.0); HEMOGLOBIN 13.1 g/dL (12.0-16.0); IMMATURE GRANULOCYTES 0.7 %; IMMATURE GRANULOCYTES ABSOLUTE 0.07 10/3/uL (0.0-0.11); LYMPHOCYTES ABSOLUTE 1.26 10/3/uL (0.67-4.30); MANUAL DIFF NO %; MEAN CORPUS HGB CONC 32.2 g/dL (32.0-36.0); MEAN CORPUSCULAR HEMOGLOB 27.3 pg (26.0-34.0); MEAN PLATELET VOLUME 10.7 fL (9.2-13.0); MONOCYTES 3.5 %; MONOCYTES ABSOLUTE 0.37 10/3/uL (0.21-1.20); NEUTROPHILS 82.8 %; NEUTROPHILS ABSOLUTE 8.69 10/3/uL (2.02-8.40); PLATELET COUNT 591 10/3/uL (150-400); RBC DISTRIBUTION WIDTH 14.3 % (12.0-16.0); RED CELL COUNT 4.79 10/6/uL (4.0-5.6); WHITE BLOOD CELLS 10.5 10/3/uL (4.5-10.5)
[2016-05-23 11:20] LABS: ASCORBIC ACID (UR NOT ORDER) NEG (NEG); BILIRUBIN, URINE NEGATIVE (NEG); ER URINALYSIS TAT 0 Hrs 09 Mins; KETONE, URINE TRACE MG/DL (NEG); LEUKOCYTE ESTERASE(NOT OR NEG (NEG); NITRITE (URINE) POS (NEG); WBC (NOT ORDERED) (RFLEX) 1 (0-5)
[2016-05-23 11:31] LABS: ALBUMIN 3.1 G/DL (3.5-5.0); ALKALINE PHOSPHATASE 147 U/L (45-117); CALCIUM, SERUM 8.8 MG/DL (8.5-10.4); CHLORIDE, SERUM 102 MMOL/L (96-112); CREATININE 0.88 MG/DL (0.55-1.02); GFR AFRICAN AMERICAN 77 ML/MIN (>=60); GFR NON AFRICAN AMERICAN 67 ML/MIN (>=60); POTASSIUM, SERUM 4.1 MMOL/L (3.5-5.3); SGPT(ALT) 27 U/L (5-65); SODIUM, SERUM 139 MMOL/L (135-148); TOTAL BILIRUBIN 0.4 MG/DL (0-1.2); TOTAL PROTEIN 8.3 G/DL (6.0-8.5)
[2016-05-23 11:32] LABS: A/G RATIO 0.6 (0.7-1.9); BUN (BLOOD UREA NITROGEN) 11 MG/DL (6-23); CO2 (CARBON DIOXIDE) 25 MMOL/L (24-34); GLOBULIN 5.2 G/DL (2.5-4.1); GLUCOSE, SERUM 252 MG/DL (60-99); SGOT(AST) 28 U/L (5-40)
[~2016-05-23 11:55] MED LIST changes: +FISH-EPA1000 MG PO; +MELATONIN10 M2 PO; +OXYCOD PO; +SYN.05 PO
== END 2016-05-23 13:15 | disposition home or self-care (01) ==
LOC: ER 11:55
PROVIDERS: Emergency Medicine
DX: R11.2 Nausea with vomiting, unspecified (principal); R10.32 Left lower quadrant pain; I10 Essential (primary) hypertension; E11.9 Type 2 diabetes mellitus without complications; Z85.3 Personal history of malignant neoplasm of breast; Z88.5 Allergy status to narcotic agent; Z91.09 Other allergy status, other than to drugs and biological substances; Z79.82 Long term (current) use of aspirin; Z79.4 Long term (current) use of insulin; Z79.899 Other long term (current) drug therapy
CPT/HCPCS: 74176; 80053; 81001; 83690; 85025; 96374; 96375; 99285; A9270-GY; J2405; J2550

== ENCOUNTER 2016-05-25 03:50 | Observation (INO) | payer BC ==
--- NOTE | ~2016-05-25 | HP ---
History And Physical [address] [place]. [address] NAME: DEZ BOUCHER : 45 STATUS : ADM Enma PAT#: [id number] AGE: 70 ADM/REG DATE : 05/25/16 MR#: [id number] REPORT SERV DATE: 05/25/16 DICTATED BY: IFTIKHAR FRANCO DATE: 05/25/16 REPORT STATUS : Draft TRANSCRIBED BY: MODL DATE: 05/25/16 DATE OF ADMISSION: 05/25/2016 POINT OF ENTRY: [facility]. CHIEF COMPLAINT: Abdominal pain, nausea, vomiting. HISTORY OF PRESENT ILLNESS: Ms. Boucher is a 70-year-old female with a history of insulin- dependent diabetes mellitus type 2, hypertension, hypothyroidism as well as a recent admission for a posttraumatic loculated pleural effusion requiring VATS and decortication who presents to the emergency room today with a three to four-day history of severe abdominal pain with associated nausea and vomiting. The patient was recently admitted to the Hospitalist Service from 05/05 through 05/18 for a posttraumatic right-sided loculated pleural effusion, status post chest tube insertion, however, ultimately requiring VATS with decortication. The patient states that upon her discharge last Thursday, she was doing well. Pain was well controlled, did not have any abdominal pain, nausea, vomiting, was tolerating an oral diet. She states that her symptoms first started on , described as nausea, vomiting as well as severe cramping, constant abdominal pain primarily located in the periumbilical region as well as her right upper quadrant. She was seen in the emergency department on 05/[address] scan of the abdomen and pelvis was unremarkable for abdominal pathology. Labs also unremarkable. She was discharged to home with antiemetics as well as Levsin. The patient states that these medications did not help. She feels as if her nausea, vomiting, abdominal pain is worsening and presented back to the emergency department. The patient states that her vomiting is both with oral intake and without. She is unable to tell me if oral intake makes the abdominal pain worse. She does not have a GI physician. She has undergone upper and lower endoscopy but it has been many years. She otherwise denies any fevers, night sweats, chills, chest pain, shortness of breath, diarrhea, constipation, dysuria, lower extremity edema, melena, hematochezia, hemoptysis, or hematemesis. REVIEW OF SYSTEMS: Comprehensive review of systems otherwise negative unless listed in history of present illness. LABS: Initial evaluation in the emergency department noted for a blood sugar of 299. Acetone and ketones are positive. She has a white count of 11,000. CT scan of the brain was unremarkable. Repeat abdominal imaging was not undertaken. She has received 2 L of IV fluids as well as antiemetics and pain control. The patient still is somewhat symptomatic. Therefore, she was admitted to Hospitalist Service for further evaluation and management. PREVIOUS MEDICAL HISTORY: 1. Insulin-dependent diabetes mellitus, type 2. 2. Breast cancer, status post bilateral mastectomies. 3. Hypertension. History And Physical [address] [address] NAME: DEZ BOUCHER : 45 STATUS : ADM Enma PAT#: [id number] AGE: 70 ADM/REG DATE : 05/25/16 MR#: [id number] REPORT SERV DATE: 05/25/16 DICTATED BY: IFTIKHAR FRANCO DATE: 05/25/16 REPORT STATUS : Draft TRANSCRIBED BY: NAVEEN DATE: 05/25/16 4. Hypothyroidism. 5. Posttraumatic right-sided loculated pleural effusion, status post VATS and decortication. SURGICAL HISTORY: 1. Left total knee. 2. Bilateral mastectomy. 3. Tonsillectomy. 4. Right-sided VATS with decortication. ALLERGIES: PERCOCET AND TAPE. HOME MEDICATIONS: 1. Vitamin C 500 mg daily. 2. Aspirin 81 mg daily. 3. Calcium with vitamin D 1000 mg daily. 4. Lantus 24 units b.i.d. 5. Levothyroxine 50 mcg daily. 6. Losartan 25 mg daily. 7. Melatonin 10 mg at bedtime. 8. Hope-3 fatty acids. 9. Fish oil 1000 mg daily. 10.Roxicodone 5 mg q.6 hours p.r.n. 11.Pravastatin 20 mg at bedtime. 12.Sertraline 100 mg daily. 13.Januvia 50 mg daily. SOCIAL HISTORY: Denies any tobacco, alcohol, or illicit's. FAMILY MEDICAL HISTORY: Mother with breast cancer as well as sister and other extended family members with history of breast cancer. LABS AND IMAGIN. White count 11.0, hemoglobin 13.4, hematocrit is 40.6, platelets 595. 2. Sodium is 136, potassium 3.7, chloride 95, carbon dioxide 24, BUN 11, creatinine 0.99, glucose is 299, calcium is 9.2, protein is 8.8, albumin is 3.3, bilirubin is 0.6, ALT is 36, AST 36, alk phos is 154. 3. Lipase is 115. 4. Serum acetone is moderate. 5. Troponin less than 0.02. 6. Urinalysis, specific gravity is 1.007. Positive trace ketones with positive nitrites but only 1 white blood cell per high-powered field. 7. CT scan of brain shows no acute intracranial abnormality. 8. CT scan of the abdomen and pelvis from 05/23 shows multiple rib fractures and small right-sided pleural effusion with some basal atelectasis but otherwise no acute abdominal pathology. 9. ABG, pH 7.52, pCO2 is 28, pO2 is 74, bicarb is 22, saturating 96% on room air. History And Physical [address] [address] NAME: DEZ BOUCHER : 45 STATUS : ADM Enma PAT#: [id number] AGE: 70 ADM/REG DATE : 05/25/16 MR#: [id number] REPORT SERV DATE: 05/25/16 DICTATED BY: IFTIKHAR FRANCO DATE: 05/25/16 REPORT STATUS : Draft TRANSCRIBED BY: NAVEEN DATE: 05/25/16 PHYSICAL EXAMINATION: VITAL SIGNS: Temperature is 97.6 degrees Fahrenheit, pulse is 76, respirations 19, saturating 96% on room air, blood pressure is 185/114. On recheck, blood pressure is now 157/63, heart rate of 91. GENERAL: The patient is awake, alert, in some mild distress from her abdominal pain but nontoxic-appearing. She is a well-developed, well-nourished, elderly female. HEENT: Atraumatic and normocephalic. Dry mucous membranes. Pupils are equal, round, reactive to light and accommodation. Extraocular movements intact. No scleral icterus. NECK: No jugular venous distention. No carotid bruits. CARDIAC: Regular rate and rhythm. No murmurs or gallops. Normal S1, S2. LUNGS: Decreased breath sounds in bases, right greater than left, but no wheezes, rhonchi or crackles. ABDOMEN: Soft. She is tender to palpation over the right upper quadrant as well as the periumbilical region. Hypoactive bowel sounds throughout but no rebound, guarding, or rigidity. EXTREMITIES: Warm and perfused. No cyanosis, clubbing, or edema. SKIN: Warm and dry. PSYCH: Affect is appropriate. NEURO: Alert and oriented x3. Cranial nerves 2 through 12 grossly intact. Speech is normal. Gait not assessed. ASSESSMENT AND PLAN: Ms. Boucher is a 70-year-old female who presents with a 4-day history of intractable nausea, vomiting, abdominal pain of unclear etiology. PROBLEM LIST: 1. Intractable nausea and vomiting. 2. Abdominal pain. 3. Dehydration. 4. Insulin-dependent diabetes mellitus type 2 with hyperglycemia. 5. Hypertension. 6. Leukocytosis. PLAN: 1. Intractable nausea and vomiting, unclear etiology at this time as CT scan of the abdomen and pelvis on the was unremarkable as are labs on the and repeat labs today. We will empirically place the patient on IV PPI b.i.d. as well as supportive care with antiemetics, pain control, and fluids, and we will consult Gastroenterology for assistance. 2. Abdominal pain. Again provide supportive care. Trial of IV PPI as well as GI consultation. 3. Insulin-dependent diabetes mellitus type 2 with hyperglycemia. We will dose reduce her Lantus, place her on insulin sliding scale. Hold Januvia. 4. Dehydration. Provide aggressive IV fluid hydration. 5. Hypertension. Continue patient's home medications as well as IV hydralazine p.r.n. in the event that she cannot tolerate oral medications. 6. DVT prophylaxis. Lovenox subcu. History And Physical [address] [address] NAME: DEZ BOUCHER : 45 STATUS : ADM Enma PAT#: [id number] AGE: 70 ADM/REG DATE : 05/25/16 MR#: [id number] REPORT SERV DATE: 05/25/16 DICTATED BY: IFTIKHAR FRANCO DATE: 05/25/16 REPORT STATUS : Draft TRANSCRIBED BY: NAVEEN DATE: 05/25/16 CODE STATUS: The patient wished to be full code. JCB/PEPEL Iftikhar Franco MD / [id number] CC: MD Noel Montez M.D.
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
--- NOTE | ~2016-05-25 | CN ---
Consultation Report [facility] [address] [place]. [address] NAME: ROXANNA BOUCHER : 45 STATUS : ADM Enma PAT#: [id number] AGE: 70 ADM/REG DATE : 05/25/16 MR#: [id number] REPORT SERV DATE: 05/27/16 DICTATED BY: DEEPTHI MAX DATE: 05/27/16 REPORT STATUS : Draft TRANSCRIBED BY: MODL DATE: 05/27/16 CONSULT NOTE DATE OF CONSULTATION: 05/27/2016 NURSE-PRACTITIONER WITH [facility] REASON FOR CONSULTATION: Incisional pain on her right side, status post right VATS. HISTORY OF PRESENT ILLNESS: This is a pleasant 70-year-old female, who is known to our service. She had a fall several weeks ago and broke several of her right ribs with trauma to her right chest. She was initially seen at [facility] for evaluation and sent to [facility] for rehab and then began experiencing shortness of breath. She was admitted to [facility] on 05/05/[address] scan showed a large right-sided loculated pleural effusion. The patient was taken to the operating room on 05/14/2016 for a right video-assisted thoracoscopy with decortication. Thoracotomy was not performed and she had a relatively uneventful recovery after surgery. Pain control was difficult but we eventually discharged her home on what was thought to be an adequate pain regimen. I did receive a phone call from her on 05/23/2016 with complaints of severe right-sided chest pain and intractable nausea and vomiting. I was not able to do anything for her over the phone, so I instructed her to go to the emergency room which she did. She was given antiemetics and discharged home on Levsin. She presented back on 05/25/2016 with similar complaints and was admitted for observation. CT surgery was consulted for evaluation of her right-sided chest pain. She has undergone a CT abdomen and pelvis which showed no acute pathology but it did show a small right pleural effusion which was present prior to her being discharged. Her white blood cell count has been normal. There has been no signs of fevers and her other labs have been unremarkable. Primary team has established adequate pain control. She has no complaints at this time and is tolerating p.o. with no nausea. PAST MEDICAL HISTORY: Type 2 diabetes mellitus; breast cancer status post bilateral mastectomy; hypertension; and recent rib fractures with right-sided loculated pleural effusion. PAST SURGICAL HISTORY: Bilateral mastectomies for her left-sided breast cancer; recent right video-assisted thoracoscopy with decortication for right-sided pleural effusion. FAMILY HISTORY: She has a father who from lung cancer. SOCIAL HISTORY: She smoked occasionally as a teenager. No tobacco use since that time. Denies any alcohol abuse or use of illicit drugs. She is , with children and retired. ALLERGIES: SHE IS ALLERGIC TO TAPE. Consultation Report [place] [id number] [facility] [place]. [address] NAME: ROXANNA BOUCHER : 45 STATUS : ADM Enma PAT#: [id number] AGE: 70 ADM/REG DATE : 05/25/16 MR#: [id number] REPORT SERV DATE: 05/27/16 DICTATED BY: DEEPTHI MAX DATE: 05/27/16 REPORT STATUS : Draft TRANSCRIBED BY: NAVEEN DATE: 05/27/16 HOME MEDICATIONS: Vitamin C 500 mg p.o. daily; aspirin 81 mg p.o. daily; Os-Denny 1000 mg p.o. every morning; Lantus 24 units subcu at night; Synthroid 50 mcg p.o. daily; Cozaar 25 mg per day; melatonin 10 mg at bedtime and as needed; fish oil 1000 mg p.o. daily; Januvia 50 mg p.o. daily; Zoloft 100 mg p.o. daily; Pravachol 20 mg p.o. at bedtime; and Roxicodone 5 mg p.o. q.6 hours as needed. REVIEW OF SYSTEMS: A 10-point review of systems was obtained and is negative other than that in HPI. PHYSICAL EXAMINATION: VITAL SIGNS: From today temperature 98.3, heart rate 84, blood pressure 123/57, respiratory rate 18, and O2 saturation 93% on room air. GENERAL: Pleasant female, in no acute distress. NEUROLOGIC: Alert and oriented x3. Pupils exhibit PERRLA. HEENT: Head normocephalic and atraumatic. NECK: Supple. Sclerae clear. LUNGS: Clear to auscultation bilaterally with normal effort. CARDIAC: S1, S2 with no murmurs, rubs, or gallops. SKIN: Free of rash. She has several incisions on her right flank from a recent video- assisted thoracoscopy. There were 2 small stitches that were previously holding chest tubes, these were removed today. Incisions are healed and dry and intact. ABDOMEN: Soft, obese, and nontender with active bowel sounds. EXTREMITIES: Free of cyanosis, clubbing, or edema. LAB DATA: White blood cell count 9.9, hemoglobin 11.1, hematocrit 34.1, and platelets 492. Sodium 141, potassium 4.0, chloride 103, bicarbonate 30, BUN 8, creatinine 0.8, and glucose 86. ASSESSMENT AND PLAN: This is a pleasant 70-year-old female, who recently underwent a right-sided video-assisted thoracoscopy with decortication for a right loculated pleural effusion. She has had issues with pain control since that time. I do believe the majority of her pain is coming from trauma to her right chest and possibly the pleura from her fall. She has had several broken ribs for which there is nothing to do. She is having some right flank pain around the area of her incision which would be anticipated at this phase of her recovery. I have reviewed the CT abdomen and pelvis which showed a small right-sided pleural effusion but no other acute abnormality. I do not think there is anything to do surgically. I did remove her sutures which were at the previous chest tube sites. Her incisions are healing well. I would recommend whatever pain medication seems to be working for her and she seems to be on adequate regimen at this time. I discussed this with the primary care team. We appreciate the consultation. Please let us know if we could be of any further assistance with Ms. Roxanna Boucher. I anticipate she could be discharged home within the next 24 hours. We will see her in the office in 2 weeks and will perform a chest x-ray at that time. Consultation Report [place] [id number] [facility] [place]. [address] NAME: ROXANNA BOUCHER BRANNON : 45 STATUS : ADM Enma PAT#: [id number] AGE: 70 ADM/REG DATE : 05/25/16 MR#: [id number] REPORT SERV DATE: 05/27/16 DICTATED BY: DEEPTHI MAX DATE: 05/27/16 REPORT STATUS : Draft TRANSCRIBED BY: NAVEEN DATE: 05/27/16 SABINE/NAVEEN Deepthi Max NP / [id number] CC: Radhames Juares Jr, MD Liezelle Jurgens, M.D.
--- NOTE | ~2016-05-25 | CN ---
Consultation Report [facility] [address] [place]. [address] NAME: ROXANNA BOUCHER : 45 STATUS : ADM Enma PAT#: [id number] AGE: 70 ADM/REG DATE : 05/25/16 MR#: [id number] REPORT SERV DATE: 05/26/16 DICTATED BY: IFTIKHAR BAUER DATE: 05/25/16 REPORT STATUS : Draft TRANSCRIBED BY: MODL DATE: 05/25/16 GI CONSULTATION DATE OF CONSULTATION: REASON FOR CONSULTATION: Nausea, vomiting, abdominal pain. HISTORY OF PRESENT ILLNESS: Roxanna Boucher is 70-year-old white female who has seen Dr. Nivia White in the past, has a history of colon polyps. Most recent colonoscopy was in [address] Pugh. She has had fallen off her porch and had a traumatic injury breaking several ribs on the right. She had been hospitalized from 05/05/2016 to 05/18/2016. She had right-sided loculated pleural effusion. Had chest tube implantation. Had VATS with decortication performed. She was discharged and came in after having about three to four days of upper abdominal pain and nausea and vomiting, unable to keep anything down. Apparently, she was on pain medications at home. It got to where she could not keep the pain medication down. Currently, she has some nausea, but no vomiting. She had had upper abdominal pain which has resolved after receiving Dilaudid. PAST MEDICAL HISTORY: Includes insulin-dependent diabetes, breast cancer, hypertension, hypothyroid. She has had a left total knee, bilateral mastectomy, tonsillectomy. ALLERGIES: PERCOCET AND TAPE. HOME MEDICATIONS: Vitamin C, aspirin, calcium, Lantus, levothyroxine, losartan, omega-3, fish oil, Roxicodone, pravastatin, sertraline, Januvia. SOCIAL HISTORY: No tobacco, alcohol or drugs. FAMILY HISTORY: Noncontributory. CURRENT MEDICATIONS: Include Levemir, Pravachol, Synthroid, Zoloft, magnesium, Roxicodone, Promega, Cozaar, melatonin, Caltrate D, aspirin, vitamin C, Apresoline, Protonix, Lovenox, Zofran as needed. PHYSICAL EXAMINATION: VITAL SIGNS: Blood pressure 117/55, temperature is 98.3, pulse 77, respirations 20. HEENT: Normocephalic, atraumatic. Extraocular muscles are intact. HEART: Regular without murmur. LUNGS: Clear to auscultation bilaterally. ABDOMEN: Soft. She is obese. Bowel sounds are present. EXTREMITIES: No cyanosis, clubbing, or edema. STUDIES.: She had a CT scan of the abdomen and pelvis done without contrast on 05/23/2016 that showed multiple right-sided rib fractures with a small pleural effusion. The liver, Consultation Report [place] [id number] [facility] [place]. [address] NAME: ROXANNA BOUCHER : 45 STATUS : ADM Enma PAT#: [id number] AGE: 70 ADM/REG DATE : 05/25/16 MR#: [id number] REPORT SERV DATE: 05/26/16 DICTATED BY: IFTIKHAR BAUER DATE: 05/25/16 REPORT STATUS : Draft TRANSCRIBED BY: MODL DATE: 05/25/16 spleen, pancreas, adrenal, and kidneys normal appearance. No bowel obstruction or bowel wall inflammation. LABS: Again sodium 136, potassium 3.7, chloride 95, CO2 is 24, BUN of 11, creatinine 0.99. Albumin is 3.3, AST is 36, ALT is 36, alkaline phosphatase is 154, total bilirubin is 0.6. Lipase 150. White count is 11 hemoglobin 13.4, hematocrit 40.6, platelet count 595. IMPRESSION: 1. Nausea and vomiting which seems to be resolving. She is able to tolerate clear liquids now. 2. Upper abdominal pain. Currently, she is not having, although she did get some Dilaudid. RECOMMENDATIONS: 1. I will go ahead and check an ultrasound of her abdomen. 2. Repeat her labs in the morning. Her white count is slightly elevated, to be sure that is not continuing to rise. 3. Pain and nausea and vomiting persist. May need panendoscopy for evaluation. We will follow with you. KRYSTEN/NAVEEN Iftikhar Bauer M.D. / [id number] CC: Mike Roth MD
[2016-05-25 03:38] LABS: BASOPHILS 0.2 %; BASOPHILS ABSOLUTE 0.02 10/3/uL (0.0-0.16); EOSINOPHILS 0 %; ER CBC TAT 0 Hrs 12 Mins; HEMATOCRIT 40.6 % (36.0-48.0); HEMOGLOBIN 13.4 g/dL (12.0-16.0); IMMATURE GRANULOCYTES 0.3 %; IMMATURE GRANULOCYTES ABSOLUTE 0.03 10/3/uL (0.0-0.11); LYMPHOCYTES 7.8 %; LYMPHOCYTES ABSOLUTE 0.85 10/3/uL (0.67-4.30); MEAN CORPUSCULAR HEMOGLOB 27.3 pg (26.0-34.0); MEAN CORPUSCULAR VOLUME 82.9 fL (80-100); MEAN PLATELET VOLUME 10.6 fL (9.2-13.0); MONOCYTES 2.4 %; MONOCYTES ABSOLUTE 0.26 10/3/uL (0.21-1.20); NEUTROPHILS 89.3 %; NEUTROPHILS ABSOLUTE 9.79 10/3/uL (2.02-8.40); PLATELET COUNT 595 10/3/uL (150-400); RBC DISTRIBUTION WIDTH 14.1 % (12.0-16.0)
[2016-05-25 03:39] LABS: MANUAL DIFF NO %
[2016-05-25 03:57] LABS: A/G RATIO 0.6 (0.7-1.9); ALBUMIN 3.3 G/DL (3.5-5.0); ALKALINE PHOSPHATASE 154 U/L (45-117); BUN (BLOOD UREA NITROGEN) 11 MG/DL (6-23); CALCIUM, SERUM 9.2 MG/DL (8.5-10.4); CHLORIDE, SERUM 95 MMOL/L (96-112); CO2 (CARBON DIOXIDE) 24 MMOL/L (24-34); CREATININE 0.99 MG/DL (0.55-1.02); GFR AFRICAN AMERICAN 67 ML/MIN (>=60); GFR NON AFRICAN AMERICAN 58 ML/MIN (>=60); GLOBULIN 5.5 G/DL (2.5-4.1); GLUCOSE, SERUM 299 MG/DL (60-99); POTASSIUM, SERUM 3.7 MMOL/L (3.5-5.3); SGOT(AST) 36 U/L (5-40); SGPT(ALT) 36 U/L (5-65); SODIUM, SERUM 136 MMOL/L (135-148); TOTAL BILIRUBIN 0.6 MG/DL (0-1.2); TOTAL PROTEIN 8.8 G/DL (6.0-8.5); TROPONIN I <0.02 NG/ML (<0.05)
[2016-05-25 04:34] LABS: ASCORBIC ACID (UR NOT ORDER) NEG (NEG); BILIRUBIN, URINE NEGATIVE (NEG); ER URINALYSIS TAT 0 Hrs 08 Mins; KETONE, URINE 80 MG/DL (NEG); LEUKOCYTE ESTERASE(NOT OR NEG (NEG); NITRITE (URINE) POS (NEG); WBC (NOT ORDERED) (RFLEX) 1 (0-5)
[2016-05-25 06:12] LABS: ALLENS TEST Pos; BE (BASE EXCESS) 0.6 MEQ/L (0 +/- 2.5); CARBOXYHEMOGLOBIN 1.1 % (0-3); HCO3 (ACTUAL BICARBONATE) 22.4 MEQ/L (23-27); HEMOBLOGIN CONTENT 12.8 G/DL (12-16); INSTRUMENT SERIAL # 8087; METHEMOGLOBIN 0.3 % (0-3); O2 CONTENT 17.1 VOL% (18-24); OPERATOR ID 334499; PCO2 (CO2 TENSION) 28 MMHG (35-45); PO2 (O2 TENSION) 74 MMHG (79-93); SAMPLE Arterial; pH 7.52 (7.37-7.43)
[2016-05-25] MEDS ORDERED: ASAB PO (06:27)
[2016-05-25] MEDS ORDERED: VITC500 PO (06:27)
[2016-05-25] MEDS ORDERED: OS500+D PO (06:28)
[2016-05-25] MEDS ORDERED: LANTUSCART SC (06:28)
[2016-05-25] MEDS ORDERED: SYN.05 PO (06:29)
[2016-05-25] MEDS ORDERED: COZ25 PO (06:29)
[2016-05-25] MEDS ORDERED: MELATONIN10 M2 PO (06:29)
[2016-05-25] MEDS ORDERED: FISH-EPA1000 MG PO (06:29)
[2016-05-25] MEDS ORDERED: PRAVAC PO (06:30)
[2016-05-25] MEDS ORDERED: OXYCOD PO (06:30)
[2016-05-25] MEDS ORDERED: ZOL100 PO (06:30)
[2016-05-25] MEDS ORDERED: JANUVIA50 PO (06:31)
[2016-05-26 04:05] LABS: BASOPHILS 0.1 %; BASOPHILS ABSOLUTE 0.01 10/3/uL (0.0-0.16); EOSINOPHILS 0.2 %; EOSINOPHILS ABSOLUTE 0.02 10/3/uL (0.0-0.53); HEMOGLOBIN 11.1 g/dL (12.0-16.0); IMMATURE GRANULOCYTES 0.2 %; IMMATURE GRANULOCYTES ABSOLUTE 0.02 10/3/uL (0.0-0.11); LYMPHOCYTES 24.9 %; LYMPHOCYTES ABSOLUTE 2.47 10/3/uL (0.67-4.30); MEAN CORPUS HGB CONC 32.6 g/dL (32.0-36.0); MEAN CORPUSCULAR HEMOGLOB 27.6 pg (26.0-34.0); MEAN CORPUSCULAR VOLUME 84.8 fL (80-100); MEAN PLATELET VOLUME 10.1 fL (9.2-13.0); MONOCYTES 8.1 %; NEUTROPHILS 66.5 %; NEUTROPHILS ABSOLUTE 6.59 10/3/uL (2.02-8.40); PLATELET COUNT 492 10/3/uL (150-400); RBC DISTRIBUTION WIDTH 14.6 % (12.0-16.0); RED CELL COUNT 4.02 10/6/uL (4.0-5.6); WHITE BLOOD CELLS 9.9 10/3/uL (4.5-10.5)
[2016-05-26 04:07] LABS: HEMATOCRIT 34.1 % (36.0-48.0); MANUAL DIFF NO %
[2016-05-26 04:22] LABS: BUN (BLOOD UREA NITROGEN) 9 MG/DL (6-23); CHLORIDE, SERUM 104 MMOL/L (96-112); CO2 (CARBON DIOXIDE) 27 MMOL/L (24-34); CREATININE 0.84 MG/DL (0.55-1.02); GFR AFRICAN AMERICAN 82 ML/MIN (>=60); GFR NON AFRICAN AMERICAN 70 ML/MIN (>=60); POTASSIUM, SERUM 3.3 MMOL/L (3.5-5.3); SGOT(AST) 21 U/L (5-40); SGPT(ALT) 22 U/L (5-65); SODIUM, SERUM 139 MMOL/L (135-148); TOTAL BILIRUBIN 0.3 MG/DL (0-1.2)
[2016-05-26 04:25] LABS: A/G RATIO 0.7 (0.7-1.9); ALBUMIN 2.5 G/DL (3.5-5.0); ALKALINE PHOSPHATASE 112 U/L (45-117); CALCIUM, SERUM 7.6 MG/DL (8.5-10.4); GLOBULIN 3.8 G/DL (2.5-4.1); GLUCOSE, SERUM 114 MG/DL (60-99); TOTAL PROTEIN 6.3 G/DL (6.0-8.5)
[2016-05-27 06:03] LABS: A/G RATIO 0.6 (0.7-1.9); ALBUMIN 2.5 G/DL (3.5-5.0); ALKALINE PHOSPHATASE 109 U/L (45-117); BUN (BLOOD UREA NITROGEN) 8 MG/DL (6-23); CALCIUM, SERUM 8.3 MG/DL (8.5-10.4); CHLORIDE, SERUM 103 MMOL/L (96-112); CO2 (CARBON DIOXIDE) 30 MMOL/L (24-34); CREATININE 0.84 MG/DL (0.55-1.02); GFR AFRICAN AMERICAN 82 ML/MIN (>=60); GFR NON AFRICAN AMERICAN 70 ML/MIN (>=60); GLOBULIN 3.9 G/DL (2.5-4.1); SGOT(AST) 21 U/L (5-40); SGPT(ALT) 24 U/L (5-65); SODIUM, SERUM 141 MMOL/L (135-148); TOTAL BILIRUBIN 0.5 MG/DL (0-1.2); TOTAL PROTEIN 6.4 G/DL (6.0-8.5)
[2016-05-27 06:04] LABS: GLUCOSE, SERUM 86 MG/DL (60-99)
[2016-05-28] MEDS ORDERED: OXYCON10 PO ×2 (11:19→11:32)
[2016-05-28] MEDS ORDERED: MIRALAX POWDER1 PKT PO (11:22)
== END 2016-05-28 13:27 | disposition home or self-care (01) ==
LOC: ER 03:50 → CDU1 07:03
PROVIDERS: Internal Medicine; Nurse Practitioner
DX: R10.9 Unspecified abdominal pain (principal); M54.6 Pain in thoracic spine; E86.0 Dehydration; R11.2 Nausea with vomiting, unspecified; E11.9 Type 2 diabetes mellitus without complications; Z79.4 Long term (current) use of insulin; I10 Essential (primary) hypertension; E78.00 Pure hypercholesterolemia, unspecified; M19.90 Unspecified osteoarthritis, unspecified site; F32.9 Major depressive disorder, single episode, unspecified; F41.9 Anxiety disorder, unspecified; D72.829 Elevated white blood cell count, unspecified; E03.9 Hypothyroidism, unspecified; Z90.13 Acquired absence of bilateral breasts and nipples; Z90.89 Acquired absence of other organs; Z98.890 Other specified postprocedural states; Z88.6 Allergy status to analgesic agent; Z96.41 Presence of insulin pump (external) (internal); Z98.42 Cataract extraction status, left eye; Z79.899 Other long term (current) drug therapy
CPT/HCPCS: 36600; 70450; 76700; 80053; 81001; 82009; 82805; 82962; 83690; 83735; 84484; 85025; 93005; 96372; 96374; 96375; 96376; 99285; A9270-GY; C9113; G0378; J0360; J1170; J1980; J2405; J2550